=== PATIENT | female | born 1955 | race Caucasian/White ===

== ENCOUNTER 2016-11-11 08:20 | Emergency (ER) | payer BC ==
[2016-11-11] MEDS ORDERED: SODIUM CHLORIDE 0.9% 1,000 ML ONE (09:13)
[2016-11-11] MEDS ORDERED: ONDANSETRON 4 MG VIAL ONE (09:13)
[2016-11-11] MEDS ORDERED: DICYCLOMINE 20MG/2ML VIAL IM ONE (10:04)
== END 2016-11-11 11:03 | disposition home or self-care (01) ==
LOC: ER 08:20
DX: R10.84 Generalized abdominal pain (principal); R11.2 Nausea with vomiting, unspecified; K50.90 Crohn's disease, unspecified, without complications; E03.9 Hypothyroidism, unspecified; Z90.49 Acquired absence of other specified parts of digestive tract
CPT/HCPCS: 74022; 80048; 81001; 83690; 85025; 96361; 96372; 96374